=== PATIENT | male | born 1960 | race Caucasian/White ===

== ENCOUNTER 2017-01-11 17:01 | Emergency (ER) | payer MEDICARE, OTHER ==
[~2017-01-11] VITALS: Ht 180.3 cm; Wt 79.4 kg
--- NOTE | ~2017-01-11 | CR132 ---
[facility] A Service of [facility] & [facility] RADIOLOGY TEXT RESULTS PATIENT: JACQUELINE ALLEN LOCATION: CFTX : 58 UNIT #: [id number] AGE: [address]: Suzan Bazan SEX: M ORDER DR: [id number] [facility] [address] [place], [place] [address] [id number] MR#: [id number] #: [id number] NAME: JACQUELINE ALLEN : 1960 SEX: M STUDY DATE/TIME: 01/11/2017 18:26 UNIT: [facility] ROOM: STUDY DESCRIPTION: CR Forearm 2 View Lt Attending Physician: Suzan Bazan Pa-C Ordering Physician: Philip Cooper M.D. Primary Care Physician: Cesar Emanuel, Hubert MEDICAL IMAGING REPORT This report is preliminary unless electronic signature is present EXAM Left forearm 2 views HISTORY Arm pain and swelling after injury with glass today. FINDINGS AP and lateral views of the left forearm demonstrate normal bone alignment. No fracture or opaque soft tissue foreign body. Mild soft tissue swelling along the posterior margin of the mid forearm. Degenerative changes in the wrist at the STT and first CMC joints. IMPRESSION No fracture or opaque soft tissue foreign body. Normal bone alignment. Dictated by... Greyson Marlow M.D. THIS IS AN ELECTRONICALLY VERIFIED REPORT Greyson Marlow M.D. at 01/12/2017 11:22 PM KENDALL/apolonia TD: 01/12/2017 00:43 JOB #: [id number] MEDICAL IMAGING REPORT Page 1 of 1 COPY
[~2017-01-11 17:01] MED LIST: AMITRIPTYLINE H25 MG PO; ASPIRIN81 M2 PO; BENTYL20 MG PO; FLAGYL PO; GABAPENTIN600 MG PO; HYDROCHLOROTHIA25 MG PO; HYDROCODON-ACE1 EAC7 PO; IBUPROFEN800 MG PO; KLONOPIN1 MG PO; KLONOPIN2 MG PO; LISINOPRIL PO; MOTION RELIEF25 MG PO; NORVASC PO; OMEPRAZOLE20 M2 PO; ORUDIS75 M1 DOB; Q-PAP325 MG PO; ROBAXIN500 MG PO; SIMVASTATIN40 MG PO; VOLTAREN75 MG PO
== END 2017-01-11 19:24 | disposition home or self-care (01) ==
LOC: CED 17:01 → CFTX 17:01
DX: S50.812A Abrasion of left forearm, initial encounter (principal); S80.812A Abrasion, left lower leg, initial encounter; M06.9 Rheumatoid arthritis, unspecified; F41.9 Anxiety disorder, unspecified; F17.200 Nicotine dependence, unspecified, uncomplicated; X58.XXXA Exposure to other specified factors, initial encounter
CPT/HCPCS: 73090; 99283